=== PATIENT | male | born 1955 ===

== ENCOUNTER 2016-06-01 00:27 | Emergency (ER) | payer SELFPAY ==
--- NOTE | 2016-06-01 01:49 | ED ---
Robert Frey SooYoung, scribed for Suresh Lopez MD on 06/01/16 at 0132 . Throat Pain/Nasal Congestion - HPI Summary HPI Summary: A 61 y/o M presents with c/o acute R lower dental pain onset yesterday. He had his R lower wisdom tooth removed one week ago. Pt also notes having recent CP, and is concerned that if his tooth is infected, it may be related. - History of Current Complaint Chief Complaint: EDDentalPain Hx Obtained From: Patient Onset/Duration: Lasting Hours, Still Present - Allergies/Home Medications Allergies/Adverse Reactions: Allergies Allergy/AdvReac Type Severity Reaction Status Date / Time No Known Allergies Allergy Verified 04/11/14 14:13 PMH/Surg Hx/FS Hx/Imm Hx Previously Healthy: Yes Endocrine/Hematology History: Reports: Hx Diabetes Cardiovascular History: Denies: Hx Hypertension, Hx Pacemaker/ICD History: Denies: Hx Renal Disease Sensory History: Denies: Hx Hearing Aid Psychiatric History: Denies: Hx Panic Disorder - Immunization History Date of Tetanus Vaccine: unk Date of Influenza Vaccine: none Infectious Disease History: No Infectious Disease History: Denies: Traveled Outside the [place] in Last 30 Days - Family History Known Family History: Positive: Other - colon CA - Social History Occupation: Unemployed - OTHER Lives: With Family Alcohol Use: Daily Alcohol Amount: 1 beer Hx Substance Use: No Substance Use Type: Reports: None Hx Tobacco Use: No Smoking Status (MU): Never Smoked Tobacco Review of Systems Negative: Fever Positive: Dental Pain Positive: Chest Pain All Other Systems Reviewed And Are Negative: Yes Physical Exam Triage Information Reviewed: Yes Vital Signs On Initial Exam: Initial Vitals Temp Pulse Resp BP Pulse Ox 98.2 F 54 20 125/78 100 06/01/16 00:32 06/01/16 00:32 06/01/16 00:32 06/01/16 00:32 06/01/16 00:32 Vital Signs Reviewed: Yes Appearance: Positive: Well-Appearing, No Pain Distress Skin: Positive: Warm Head/Face: Positive: Normal Head/Face Inspection Eyes: Positive: PRESTON ENT: Positive: Hearing grossly normal Dental: Positive: Gross Decay/Caries @ Neck: Positive: Supple Respiratory/Lung Sounds: Positive: Clear to Auscultation, Breath Sounds Present Cardiovascular: Positive: RRR. Negative: Murmur Abdomen Description: Positive: Nontender, Soft Musculoskeletal: Positive: Strength/ROM Intact Neurological: Positive: Sensory/Motor Intact, Normal Gait - Amy Coma Scale Coma Scale Total: 15 Diagnostics - Vital Signs Vital Signs Temp Pulse Resp BP Pulse Ox 06/01/16 00:32 98.2 F 54 20 125/78 100 - Laboratory Result Diagrams: 06/01/16 01:40 06/01/16 01:40 Lab Statement: Any lab studies that have been ordered have been reviewed, and results considered in the medical decision making process. - Radiology CXR Xray Interpretation: No Acute Changes Radiology Interpretation Completed By: ED Physician - EKG 1 Cardiac Rate: NL EKG Rhythm: Sinus Rhythm Re-Evaluation - Re-Evaluation 1 Re-Evaluation Time: 02:24 Change: Improved Comment: Discussing results with pt. Will d/c home. EENT Course/Dx - Diagnoses Provider Diagnoses: Chest pain, Pain, dental Discharge - Discharge Plan Condition: Stable Disposition: HOME Patient Education Materials: Chest Pain (ED) Referrals: Savita Bright MD [Primary Care Provider] - 1 Week Additional Instructions: Please follow-up with your primary care physician within the week regarding your chest pain. Follow up with your dentist regarding your dental pain. If you experience any new or worsening new symptoms, please return to the ED. The documentation as recorded by the Robert negron SooYoung accurately reflects the service I personally performed and the decisions made by me, Suresh Lopez MD.
[2016-06-01 01:52] LABS: Hematocrit 40 % (42-52); Hemoglobin 13.2 g/dl (14.0-18.0); Mean Corpuscular HGB Conc 34 g/dl (31-36); Mean Corpuscular Hemoglobin 29 pg (27-31); Mean Corpuscular Volume 88 fL (80-94); Mean Platelet Volume 8 um3 (7.4-10.4); Red Cell Distribution Width 13 % (10.5-15); White Blood Count 5.2 10^3/ul (3.5-10.8)
[2016-06-01 02:06] LABS: Albumin 4.1 g/dL (3.2-5.2); BUN/Creatinine Ratio 16.5 (8-20); Calcium 9.5 mg/dL (8.6-10.3); EGFR African American 94.7 (>60); EGFR Non-African American 73.7 (>60); Globulin 2.4 g/dL (2-4); Potassium 4.1 mmol/L (3.5-5.0); Total Bilirubin 0.8 mg/dL (0.2-1.0); Total Protein 6.5 g/dL (6.4-8.9)
[2016-06-01 02:59] VITALS: BP 124/83
--- NOTE | 2016-06-01 08:38 | RAD ---
INDICATION: Fever and chest pain following wisdom tooth extraction 8 days ago. COMPARISON: None. TECHNIQUE: Dual energy PA and routine lateral views of the chest were obtained. REPORT: Elevated lung volumes. Clear lungs and pleural spaces. Negative for pneumothorax. The heart, pulmonary vasculature, and mediastinal contours are unremarkable. Negative for pneumomediastinum. Unremarkable soft tissue contours and osseous structures for age. IMPRESSION: No evidence for presence of a thoracic inflammatory process. No evidence for acute intrathoracic disease.
== END 2016-06-01 02:57 | disposition home or self-care (01) ==
LOC: ED 00:27
DX: R07.9 Chest pain, unspecified (principal); K08.89 Other specified disorders of teeth and supporting structures
CPT/HCPCS: 36415; 71020; 80053; 84484; 85025; 93005; 99282